=== PATIENT | female | born 2000 | race Native Hawaiian/Other Pacific Islander ===

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

== ENCOUNTER 2022-11-25 13:22 | Outpatient (CLI) | payer BC | END 2022-11-25 20:02 | disposition home or self-care (01) | LOC: CT 13:22 | PROVIDERS: ATTEND Physician Assistant | DX: R10.2 Pelvic and perineal pain (principal) | CPT/HCPCS: Q9963 ==